=== PATIENT | male | born 1975 | race Caucasian/White ===

== ENCOUNTER 2022-10-15 19:27 | Inpatient (IN) | payer OTHER ==
[2022-10-15] MEDS ORDERED: Thiamine HCl 200 MG/2 ML VIAL SLOW IVP SCH ×2 (20:15→21:30)
[2022-10-15 20:24] LABS: #Eosinphils 0.1 thou/uL (0.0-0.7); #Monocytes 0.7 thou/uL (0.11-0.59); %Basophils 0.6 % (0.0-1.0); %Eosinophils 1.4 % (0.0-10.0); %Lymphocytes 23.6 % (21.0-51.0); Hemoglobin 11.5 g/dL (14.0-18.0); Mean Corpuscular HGB CONC 35.4 g/dL (32.0-36.0); Mean Corpuscular Hemoglobin 33.3 pg (27.0-31.0); Mean Corpuscular Volume 94.2 fl (78.0-98.0); Mean Platelet Volume 8.7 fL (7.4-10.4); Platelet Count 145 10x3/uL (130-400); RBC Distribution Width 12.3 % (11.5-14.5); Red Blood Cell (RBC) Count 3.45 mill/uL (4.70-6.10)
[2022-10-15 20:48] LABS: ALT (SGPT) 19 U/L (8-55); AST (SGOT) 28 U/L (5-34); Albumin 3.9 g/dL (3.5-5.0); Alkaline Phosphatase 25 U/L (40-110); Anion Gap 15 mmol/L (10-20); BUN (Urea Nitrogen) 18 mg/dL (8.9-20.6); Bilirubin, Total 0.6 mg/dL (0.2-1.2); Calc. Creatinine Clearance 0 mL/min (70-130); Calcium 8.6 mg/dL (7.8-10.44); Carbon Dioxide 20 mmol/L (22-29); Chloride 93 mmol/L (98-107); Estimated GFR 26; Glucose 132 mg/dL (70-105); Magnesium 2.1 mg/dL (1.6-2.6); Potassium 3.6 mmol/L (3.5-5.1); Protein, Total 6.9 g/dL (6.0-8.3); Sodium 124 mmol/L (136-145)
[2022-10-15 21:17] LABS: Bilirubin Negative (Negative); Blood, Urine Negative (Negative); Clarity Clear (Clear); Glucose, Urine (Dipstick) Greater than 1000 mg/dL (Negative); Ketone, Urine Negative (Negative); Leukocyte Negative Leu/uL (Negative); Nitrite Negative (Negative); Protein, Urine (Dipstick) Negative (Neg-Trace); Specific Gravity, Urine 1.004 (1.002-1.036); Urobilinogen Normal mg/dL (Less than 2)
[2022-10-15] MEDS ORDERED: Acetaminophen 325 MG TAB PO PRN (21:21)
[2022-10-15] MEDS ORDERED: Senokot S 8.6-50 MG TAB PO PRN (21:21)
[2022-10-15] MEDS ORDERED: Ondansetron ODT 4 MG TAB PO PRN ×2 (21:21→21:22)
[2022-10-15] MEDS ORDERED: Lorazepam 1 MG TAB PO PRN (21:22)
[2022-10-15] MEDS ORDERED: Lorazepam 2 MG/ML VIAL IM PRN (21:22)
[2022-10-15] MEDS ORDERED: Electrolyte Replacement Protocol 1 EACH FS SCH (21:30)
[2022-10-15] MEDS ORDERED: HumaLOG 300 UNITS/3 ML VIAL SC PRN ×2 (21:34)
[2022-10-15] MEDS ORDERED: Dextrose 5% in Water 1,000 ML IV PRN (21:34)
[2022-10-15] MEDS ORDERED: Dextrose 50% Abboject 50 ML SYRINGE SLOW IVP PRN (21:34)
[2022-10-15 22:00] LABS: #Eosinphils 0.1 thou/uL (0.0-0.7); #Monocytes 0.6 thou/uL (0.11-0.59); #Neutrophils 2.8 thou/uL (1.40-6.50); %Basophils 0.4 % (0.0-1.0); %Lymphocytes 22.1 % (21.0-51.0); %Monocytes 13.1 % (0.0-10.0); %Neutrophils 62.2 % (42.0-75.0); Hemoglobin 11.7 g/dL (14.0-18.0); Mean Corpuscular HGB CONC 35.1 g/dL (32.0-36.0); Mean Corpuscular Hemoglobin 32.9 pg (27.0-31.0); Mean Corpuscular Volume 93.5 fl (78.0-98.0); Mean Platelet Volume 8.7 fL (7.4-10.4); Platelet Count 134 10x3/uL (130-400); RBC Distribution Width 12.2 % (11.5-14.5); Red Blood Cell (RBC) Count 3.56 mill/uL (4.70-6.10); White Blood Cell (WBC) Count 4.6 10x3/uL (4.8-10.8)
[2022-10-15 22:08] LABS: Hemoglobin A1c 6.1 % (4.0-6.0)
[2022-10-15 22:22] LABS: Bilirubin, Direct 0.3 mg/dL (0.1-0.3); Phosphorus 3.2 mg/dL (2.3-4.7)
[2022-10-15 22:53] VITALS: BMI 35.6
[2022-10-15] MEDS: Lorazepam 1 MG TAB PO SCH (23:40)
[2022-10-16] MEDS: Lorazepam 1 MG TAB PO SCH ×3 (04:39→15:19)
[2022-10-16 05:20] LABS: #Eosinphils 0.1 thou/uL (0.0-0.7); #Monocytes 0.5 thou/uL (0.11-0.59); #Neutrophils 3.2 thou/uL (1.40-6.50); %Basophils 0.4 % (0.0-1.0); %Eosinophils 1.1 % (0.0-10.0); %Lymphocytes 17.5 % (21.0-51.0); %Monocytes 11.7 % (0.0-10.0); %Neutrophils 68.7 % (42.0-75.0); Hemoglobin 11.7 g/dL (14.0-18.0); Mean Corpuscular HGB CONC 34.4 g/dL (32.0-36.0); Mean Corpuscular Hemoglobin 32.2 pg (27.0-31.0); Mean Corpuscular Volume 93.7 fl (78.0-98.0); Mean Platelet Volume 8.4 fL (7.4-10.4); Platelet Count 120 10x3/uL (130-400); RBC Distribution Width 12.3 % (11.5-14.5); Red Blood Cell (RBC) Count 3.63 mill/uL (4.70-6.10); White Blood Cell (WBC) Count 4.6 10x3/uL (4.8-10.8)
[2022-10-16 05:54] LABS: Anion Gap 13 mmol/L (10-20); BUN (Urea Nitrogen) 16 mg/dL (8.9-20.6); Calc. Creatinine Clearance 66 mL/min (70-130); Carbon Dioxide 24 mmol/L (22-29); Chloride 100 mmol/L (98-107); Estimated GFR 38; Glucose 128 mg/dL (70-105); Potassium 3.9 mmol/L (3.5-5.1); Sodium 133 mmol/L (136-145)
[2022-10-16] MEDS ORDERED: Magnesium 2 GM/50 ML(in water) 2 GM in Premix Bag 1 BAG IVPB SCH (08:00)
[2022-10-16] MEDS: Heparin 5,000 UNITS/ML VIAL SC SCH ×2 (08:58→15:19)
[2022-10-16] MEDS ORDERED: Famotidine 20 MG TAB PO SCH (09:00)
[2022-10-16] MEDS ORDERED: Multivit, Therapeutic 1 TAB PO SCH (09:00)
[2022-10-16] MEDS ORDERED: Folic Acid 1 MG TAB PO SCH (09:00)
[2022-10-16] MEDS ORDERED: Non-Formulary Item 1 EACH (Temazepam [Temazepam] 30 MG Capsule) PO PRN (10:06)
[2022-10-16] MEDS ORDERED: Cyclobenzaprine 10 MG TAB PO PRN (10:06)
[2022-10-16] MEDS ORDERED: Temazepam 15 MG CAP PO PRN (10:27)
[2022-10-16] MEDS: Sodium Bicarbonate 150 MEQ in Dextrose 5% in Water 1,000 ML IV SCH ×2 (10:50→11:55)
[2022-10-16] MEDS ORDERED: Dextrose 5% in Water 1,000 ML IV SCH (12:30)
[2022-10-16 14:22] LABS: Protein, Urine Random Quant Less than 10 mg/dL (1-14)
[2022-10-16 15:59] VITALS: TEMP 99.1
[2022-10-16 16:00] VITALS: BP 146/87
[2022-10-16 16:17] LABS: Anion Gap 16 mmol/L (10-20); BUN (Urea Nitrogen) 15 mg/dL (8.9-20.6); Calc. Creatinine Clearance 79 mL/min (70-130); Calcium 9.5 mg/dL (7.8-10.44); Carbon Dioxide 23 mmol/L (22-29); Chloride 97 mmol/L (98-107); Estimated GFR 47; Glucose 146 mg/dL (70-105); Potassium 3.9 mmol/L (3.5-5.1); Sodium 132 mmol/L (136-145)
[2022-10-16] MEDS ORDERED: Lorazepam 1 MG TAB PO PRN (21:22)
[2022-10-17] MEDS ORDERED: Non-Formulary Item 1 EACH (Escitalopram Oxalate [Lexapro] 5 MG Tablet) PO SCH (09:00)
[2022-10-17] MEDS ORDERED: Bupropion 150 MG XL TAB PO SCH (09:00)
[2022-10-17] MEDS ORDERED: Non-Formulary Item 1 EACH (Omeprazole [Omeprazole] 20 MG Capsule.Dr) PO SCH (09:00)
[2022-10-17] MEDS ORDERED: Calcium Carbonate 600 MG TAB PO SCH (09:00)
[2022-10-17] MEDS ORDERED: Non-Formulary Item 1 EACH (Bupropion Hcl [Bupropion Xl] 300 MG Tab.Er.24h) PO SCH (09:00)
[2022-10-17] MEDS ORDERED: Non-Formulary Item 1 EACH (Cholecalciferol (Vitamin D3) [Vitamin D3] 5,000 UNITS Capsule) PO SCH (09:00)
[2022-10-17] MEDS ORDERED: Escitalopram Oxalate 10 mg Tablet PO SCH (09:00)
[2022-10-17] MEDS ORDERED: CHOLECALCIFEROL 5000 UNIT PO SCH (09:00)
[2022-10-17] MEDS ORDERED: Empagliflozin 25 MG TAB PO SCH (09:00)
[2022-10-17] MEDS ORDERED: CLOMIPHENE CITRATE 50 MG PO SCH ×2 (09:00)
[2022-10-17] MEDS ORDERED: Fenofibrate Nanocrystallized 145 MG TAB PO SCH (09:00)
[2022-10-17] MEDS ORDERED: Rosuvastatin 5 MG TAB PO SCH (09:00)
[2022-10-17] MEDS ORDERED: Lorazepam 1 MG TAB PO PRN (21:22)
[2022-10-17] MEDS ORDERED: Lorazepam 0.5 MG TAB PO SCH (21:30)
[2022-10-18 15:16] LABS: A/G Ratio 1.1 (0.7-1.7); Albumin 3.4 g/dL (2.9-4.4); Alpha 1 0.4 g/dL (0.0-0.4); Alpha 2 0.8 g/dL (0.4-1.0); Globulin, Total 3.2 g/dL (2.2-3.9); M-Spike Not Observed g/dL (Not Observed)
[2022-10-18 15:16] LABS: Albumin-Ur 23.7 % (.); Alpha 1 - Ur 13.1 % (.); Alpha 2 - Ur 26.6 % (.); Beta-Ur 17.9 % (.); Gamma-Ur 18.8 % (.); M-Spike,% Not Observed % (Not Observed)
[2022-10-18] MEDS ORDERED: Thiamine 100 MG TAB PO SCH (21:00)
[2022-10-18] MEDS ORDERED: Lorazepam 0.5 MG TAB PO PRN (21:22)
[2022-10-23] MEDS ORDERED: Anastrozole 1 MG TAB PO SCH (09:00)
== END 2022-10-16 16:48 | disposition left against medical advice (07) | DRG 683 ==
LOC: ERS 19:27 → 2SW 21:23
PROVIDERS: ADMIT Student in an Organized Health Care Education/Training Program; ATTEND Internal Medicine
DX: N17.9 Acute kidney failure, unspecified (principal); E87.1 Hypo-osmolality and hyponatremia; E87.20 Acidosis, unspecified; G89.29 Other chronic pain; E78.5 Hyperlipidemia, unspecified; F32.A Depression, unspecified; I95.9 Hypotension, unspecified; N18.32 Chronic kidney disease, stage 3b; E11.22 Type 2 diabetes mellitus with diabetic chronic kidney disease; I13.10 Hypertensive heart and chronic kidney disease without heart failure, with stage 1 through stage 4 chronic kidney disease, or unspecified chronic kidney disease; F10.10 Alcohol abuse, uncomplicated; D63.1 Anemia in chronic kidney disease; Z98.890 Other specified postprocedural states; Z91.040 Latex allergy status; Z91.09 Other allergy status, other than to drugs and biological substances
CPT/HCPCS: 36415; 36416; 71045; 76770; 80048; 80053; 81003; 82248; 82570; 83036; 83735; 83880; 84100; 84155; 84156; 84165; 84166; 84443; 84484; 85025; 93005; 93306; 96361; 96374; J1644; J1815; J3411; J3475; J7070

== ENCOUNTER 2023-01-27 09:33 | Outpatient (CLI) | payer OTHER | END 2023-01-27 09:34 | disposition home or self-care (01) | LOC: RAD 09:33 | PROVIDERS: ATTEND Chiropractor | DX: R07.82 Intercostal pain (principal) ==